=== PATIENT | male | born 1975 | race Caucasian/White ===

== ENCOUNTER 2022-01-23 11:06 | Emergency (ER) | payer MEDICAID, SELFPAY ==
[2022-01-23 11:07] VITALS: BP 140/91; PULSE 72; RESP 14; TEMP 36.5; O2SAT 100; BMI 25.0
--- NOTE | 2022-01-23 11:57 | EDS_ITS ---
HPI History of Present Illness Chief Complaint: Back Informant: patient Onset/Context/Timing Onset: Today Context: Sudden Onset Injury: lifting Timing: Continuous Quality: Sharp Location: Lumbar, Buttock and Right Leg Worsened by: improves with Ambulation Relieved by: Medications Associated Symptoms Associated Symptoms: Numbness, Tingling and Radiation to Right Leg; Negative for Radiation to Left Leg, Fever, Abdominal Pain, Dysuria, Unable to Ambulate, Loretta ble to Transfer, Urinary Retention, Urinary Incontinence, Constipation or Fecal Incontinence Narrative Narrative: Patient presents with back pain that began today. Patient states he was trying to get his pig unstuck out of a fence. Patient states that while he was lifting the pig, he felt pain in his low back. Patient states pain radiates down his right lower extremity to his foot. Patient describes the pain as sharp and stabbing. Patient states it is worse with ambulation. Patient states he took some muscle relaxers at home which seem to help with the pain. Patient denies any bowel or bladder changes. Patient denies any saddle anesthesia. [facility] Medical History Chronic back pain greater than 3 months duration Headache Home Medications hydrocodone-acetaminophen 5-325mg 5mg-325mg 1 tab PO Q6H PRN PRN Pain 3 days #10 TABLETS 01/23/22 [Rx Last Taken Unknown] propranolol 40 mg tablet 40 tab PO BID 01/23/22 [History Last Taken Unknown] riboflavin (vitamin B2) 100 mg tablet (Vitamin B-2) 1 tab PO BID 01/23/22 [History Last Taken Unknown] sertraline 50 mg tablet 1 tab PO DAILY 01/23/22 [History Last Taken Unknown] tizanidine 4 mg capsule 4 mg PO Q8H PRN muscle spasticity #20 caps 01/23/22 [Rx Last Taken Unknown] tizanidine 4 mg tablet 40 tab PO PRN PRN Pain 01/23/22 [History Last Taken Unknown] Allergy/AdvReac Type Severity Reaction Status Date / Time No Known Allergies Allergy Verified 01/23/22 11:08 Surgical History no surgical history no surgical history Social History Smoking Status: Never smoker ROS ROS ED Constitutional Constitutional ED: Denies chills or fever(s) Eyes Eyes: Denies blurry vision or change in vision ENT ENT ED: Denies rhinorrhea or sore throat Cardiovascular Cardiovascular: Denies chest pain or palpitations Respiratory/Chest Respiratory/Chest: Denies cough or dyspnea Gastrointestinal Gastrointestinal: Denies nausea or vomiting Genitourinary Genitourinary ED: Denies dysuria or hematuria Musculoskeletal Musculoskeletal: Reports back pain; Denies neck pain Integumentary Denies abscess or rash Neurologic Neurologic: Denies headache(s) or weakness Allergic/Immunologic Allergic/Immunologic ED: Denies mouth swelling or urticaria EXAM Physical Exam Const Vital Signs: 01/23/22 11:07 Temperature 97.7 F L Temperature Source Temporal Pulse Rate 72 Respiratory Rate 14 Blood Pressure 140/91 H Blood Pressure Mean 107 Pulse Ox 100 Oxygen Delivery Method Room Air Positive well nourished and well developed General Appearance ED: well developed and NAD HEENT Reports moist mucous membranes Back/Spine Back/Spine Narrative: There is tenderness over the lumbar spine and right lumbar paraspinal muscles. There is no bony crepitance or step-off. There is no edema or ecchymosis. Straight leg raises were negative bilaterally. Deep tendon reflexes were 2+/4 bilaterally in lower extremities. Strength is 5/5 bilaterally. There are no sensory deficits. Lumbar Spine / Lower Back: ROM limited and straight leg raise negative bilaterally Extremity normal to inspection General Extremety ED: Negative for edema or tenderness General Extremity: Negative for edema Neuro oriented x3 and no sensory deficits noted Sensorium / Orientation: alert Motor Exam: strength 5/5 throughout Deep Tendon Reflexes: Rt Patellar (L4): 2+, Lt Patellar (L4): 2+, Rt Ankle (S1): 2+ and Lt Ankle (S1): 2+ Deep Tendon Reflexes Back: Rt Patellar (L4): 2+, Lt Patellar (L4): 2+, Rt Ankle (S1): 2+ and Lt Ankle (S1): 2+ Psych mental status grossly normal Skin no rashes or lesions noted MDM MDM MDM Narrative Medical decision making narrative: Patient was given a dose of [place] here. X-rays of the lumbar spine were obtained. There are 3 views. On my interpretation, there were some degenerative changes. There is no acute fracture or spondylolisthesis. There is some mild narrowing at the L5-S1 disc space. Radiologist also interpreted the x-rays and agrees. Patient is feeling somewhat better on reevaluation. Patient was given prescriptions for [place] and tizanidine. Patient was i nstructed to use ice to the area. Patient was instructed to follow-up with his primary care physician in 5 to 7 days for reevaluation. Patient understood and was agreeable with the plan. All questions were answered. Radiography Diagnostic Testing: Clinical Impression(s) from Imaging Studies Lumbar Spine X-Ray 01/23/22 12:01 IMPRESSION: 1. No acute abnormality. 2. L5-S1 disc space narrowing. Electronically Signed: Dallas Mckeon MD at 13:31 EDT , Discharge Plan Triage Chief Complaint: Back ED Provider: Prasad Corbin Dx/Rx/DC Orders Clinical Impression: Acute lumbosacral myofascial strain, Acute low back pain Instructions: ED Back Sprain/Strain, ED Back and Neck Pain, General Prescriptions: New hydrocodone-acetaminophen [hydrocodone-acetaminophen] 5-325 mg tablet 1 tab PO Q6H PRN PRN (Reason: Pain) 3 Days Qty: 10 0RF tizanidine 4 mg capsule 4 mg PO Q8H PRN (Reason: muscle spasticity) Qty: 20 0RF No Action tizanidine 4 mg tablet 40 tab PO PRN PRN (Reason: Pain) riboflavin (vitamin B2) [Vitamin B-2] 100 mg tablet 1 tab PO BID Label Comments: TAKE 1 TABLET BY MOUTH TWICE DAILY propranolol 40 mg tablet 40 tab PO BID sertraline 50 mg tablet 1 tab PO DAILY Primary Care Provider: Sawyer Eagle Referrals: Sawyer Eagle MD [Primary Care Provider] - 3-5 Days Disposition Disposition: Home, Self Care
--- NOTE | 2022-01-23 12:01 | RAD_ITS ---
EXAM: XR LUMBOSACRAL SPINE, 2 OR 3 VIEWS CLINICAL INDICATION: Injury/Pain TECHNIQUE: Frontal and lateral views of the lumbar spine and sacrum. This report was created using [employer] report generation technology. COMPARISON: None. FINDINGS: VERTEBRAE: Normal. Preserved vertebral body height. No fracture. No spondylolisthesis. Preservation of the normal lumbar lordosis. No significant facet arthropathy. DISC SPACES: Prominent disc space narrowing and mild bony spurring noted at the L5-S1 level. RAD/Lumbar Spine 2 or 3 Views IMPRESSION: 1. No acute abnormality. 2. L5-S1 disc space narrowing. Electronically Signed: Dallas Mckeon MD at 13:31 EDT ,
[2022-01-23] MEDS: HYDROcodone Bitartrate/Apap 5/325 Tablet PO (12:06)
== END 2022-01-23 14:30 | disposition home or self-care (01) ==
PROVIDERS: Emergency Provider Emergency Medicine; PCP Family Medicine; Visit Provider Emergency Medicine
DX: S39.012A Strain of muscle, fascia and tendon of lower back, initial encounter (principal); X50.0XXA Overexertion from strenuous movement or load, initial encounter
CPT/HCPCS: 72100; 99283